=== PATIENT | male | born 1975 | race Two or more races ===

== ENCOUNTER → 2020-04-20 | Outpatient (CLI) | payer OTHER | END | disposition home or self-care (01) | LOC: OFIC 805 12:00 | PROVIDERS: ATTEND Otolaryngology | DX: R09.81 Nasal congestion (principal); J30.89 Other allergic rhinitis; R04.0 Epistaxis ==

== ENCOUNTER 2020-05-03 14:15 | Outpatient (CLI) | payer OTHER | END 2020-05-03 15:30 | disposition home or self-care (01) | LOC: OFIC 805 14:15 | PROVIDERS: ATTEND Otolaryngology | DX: R04.0 Epistaxis (principal); J30.89 Other allergic rhinitis; R09.81 Nasal congestion; R49.0 Dysphonia; K21.9 Gastro-esophageal reflux disease without esophagitis; G47.33 Obstructive sleep apnea (adult) (pediatric) ==

== ENCOUNTER 2020-08-09 14:31 | Outpatient (CLI) | payer OTHER | END 2020-08-09 17:04 | disposition home or self-care (01) | LOC: OFIC 805 14:31 | PROVIDERS: ATTEND Otolaryngology | DX: R49.0 Dysphonia (principal); G47.33 Obstructive sleep apnea (adult) (pediatric); K21.9 Gastro-esophageal reflux disease without esophagitis; R09.81 Nasal congestion; J30.89 Other allergic rhinitis; R04.0 Epistaxis ==